=== PATIENT | female | born 1965 | race Caucasian/White ===

== ENCOUNTER 2019-01-05 17:54 | Emergency (ER) | payer OTHER ==
[~2019-01-05] VITALS: Ht 167.6 cm; Wt 57.7 kg
[2019-01-05 18:17] VITALS: BP 127/81; TEMP 98.2
[2019-01-05 20:31] VITALS: PULSE 76
== END 2019-01-05 20:31 | disposition home or self-care (01) ==
LOC: COL.ER 17:54
DX: S01.81XA Laceration without foreign body of other part of head, initial encounter (principal); S60.222A Contusion of left hand, initial encounter; S80.212A Abrasion, left knee, initial encounter; S80.211A Abrasion, right knee, initial encounter; S60.511A Abrasion of right hand, initial encounter; W01.198A Fall on same level from slipping, tripping and stumbling with subsequent striking against other object, initial encounter; Y92.410 Unspecified street and highway as the place of occurrence of the external cause
CPT/HCPCS: J1885